=== PATIENT | female | born 1970 | race African-American/Black ===

== ENCOUNTER 2017-09-28 15:04 | Emergency (ER) | payer OTHER ==
[2017-09-28 15:12] VITALS: BP 143/87; PULSE 90; BMI 34.4
[2017-09-28] MEDS ORDERED: KETOROLAC TROMETHAMINE 60 MG/2 ML VIAL IM ONE (15:34)
--- NOTE | 2017-09-28 15:40 | PDOC ---
History of Present Illness - General Chief Complaint: Abscess Boil Stated Complaint: LUMP IN BACK Time Seen by Provider: 09/28/17 15:19 History Source: Patient Exam Limitations: No Limitations - History of Present Illness Initial Comments: 09/28/17 15:35 47 yr female with painful burning sensation to her right mid back for 5 days no rash . Pt also feels "lump" to the lower left side. no fever, history of chicken pox as a child. Past History - Past Medical History Allergies/Adverse Reactions: Allergies Allergy/AdvReac Type Severity Reaction Status Date / Time No Known Drug Allergies Allergy Verified 09/28/17 15:12 Home Medications: Ambulatory Orders Acyclovir [Zovirax -] 800 mg PO 5XD #35 tablet 09/28/17 Cyclobenzaprine HCl [Flexeril 10 mg] 5 mg PO TID PRN #21 tablet 09/28/17 Naproxen [Naprosyn -] 500 mg PO BID PRN #14 tablet 09/28/17 Anemia: No Asthma: No Cancer: No Cardiac Disorders: No CVA: No COPD: No CHF: No Dementia: No Diabetes: No GI Disorders: Yes (GERD) Disorders: No HTN: No Hypercholesterolemia: No Liver Disease: No Seizures: No Thyroid Disease: No - Surgical History Abdominal Surgery: Yes (TUMMY TUCK ') Appendectomy: Yes Cardiac Surgery: No Cholecystectomy: No Lung Surgery: No Neurologic Surgery: Yes (LAMINECTOMY) Orthopedic Surgery: Yes (CTR RIGHT) - Immunization History Immunization Up to Date: Yes - Suicide/Smoking/Psychosocial Hx Smoking History: Never smoked Have you smoked in the past 12 months: No Number of Cigarettes Smoked Daily: 0 Cigars Per Day: 0 Hx Alcohol Use: Yes (SOCIAL) Drug/Substance Use Hx: No Substance Use Type: Alcohol Hx Substance Use Treatment: No Review of Systems - Review of Systems Able to Perform ROS?: Yes Is the patient limited Lithuanian proficient: No Constitutional: No: Symptoms Reported HEENTM: No: Symptoms Reported Respiratory: No: Symptoms reported Cardiac (ROS): No: Symptoms Reported ABD/GI: No: Symptoms Reported : No: Symptoms Reported Musculoskeletal: Yes: See HPI, Back Pain *Physical Exam - Vital Signs Last Vital Signs Temp Pulse Resp BP Pulse Ox 98.4 F 90 20 143/87 99 09/28/17 15:08 09/28/17 15:08 09/28/17 15:08 09/28/17 15:08 09/28/17 15:08 - Physical Exam General Appearance: Yes: Nourished, Appropriately Dressed HEENT: positive: EOMI, BONIFACIO Neck: positive: Supple. negative: Tender, Lymphadenopathy (R), Lymphadenopathy (L), Tender lateral, Tender midline Respiratory/Chest: positive: Lungs Clear, Normal Breath Sounds Cardiovascular: positive: Regular Rate Gastrointestinal/Abdominal: positive: Normal Bowel Sounds, Soft. negative: Tender Rectal Exam: positive: deferred Lymphatic: negative: Adenopathy Musculoskeletal: positive: Normal Inspection, Muscle Spasm (right side , no rashes ). negative: CVA Tenderness, CVA Tenderness (R), CVA Tenderness (L), Decreased Range of Motion, Vertebral Tenderness Extremity: positive: Normal Capillary Refill, Normal Inspection, Normal Range of Motion. negative: Tender Integumentary: positive: Normal Color, Dry, Warm, Other (left lower lumbar soft tissue with movable soft lump approximately [id number] , cyst like non tender ) Neurologic: positive: Fully Oriented, Alert, Normal Mood/Affect, Normal Response , Motor Strength 5/5 Medical Decision Making - Medical Decision Making 09/28/17 15:51 cc: burning sensation to the right lower/mid parapsinal area, no rash present pt states burning for 5 days to that area , does not cross the midline back pt also with a soft non tender mobile cyst to her left lower back no midline tenderness, pt has some muscle spasm to her right lower back pain is worse when standing possible shingles ? 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 pt agrees with the treatment plan and will hold on taking the antiviral (pt does not want antiviral right now ) 09/28/17 19:20 *DC/Admit/Observation/Transfer Diagnosis at time of Disposition: Acute low back pain - Discharge Dispostion Disposition: HOME Condition at time of disposition: Improved - Prescriptions Prescriptions: Acyclovir [Zovirax -] 800 mg PO 5XD #35 tablet Cyclobenzaprine HCl [Flexeril 10 mg] 5 mg PO TID PRN #21 tablet PRN Reason: Muscle Spasms Naproxen [Naprosyn -] 500 mg PO BID PRN #14 tablet PRN Reason: Back Pain - Referrals Referrals: Jose Loza MD [Primary Care Provider] - - Patient Instructions Additional Instructions: please follow with your doctor in 1-2 days for follow up take the naprosyn for pain and take the flexeril for any muscle spasm or tightness in the muscles start the Acyclovir anti viral and re-evaluate in 2 days if no responce if a rash starts finish all the medication - Post Discharge Activity
[2017-09-28] MEDS ORDERED: KETOROLAC TROMETHAMINE 60 MG/2 ML VIAL ONE (15:42)
[2017-09-28 16:16] VITALS: TEMP 98.9
== END 2017-09-28 17:04 | disposition home or self-care (01) ==
LOC: JERFT 15:04
PROC: 3E0233Z Introduction of Anti-inflammatory into Muscle, Percutaneous Approach (ICD-10-PCS; principal; 2017-09-28)
DX: M54.5 Low back pain (principal); M62.830 Muscle spasm of back
CPT/HCPCS: 72100-TC; 96372; 99281-25

== ENCOUNTER 2018-08-19 22:00 | Observation (INO) | payer OTHER ==
[2018-08-19] MEDS ORDERED: SODIUM CHLORIDE 0.9% 500 ML INFUS.BAG IV ONE (23:58)
[2018-08-20] MEDS ORDERED: MAG HYDROX/AL HYDROX/SIMETH 30 ML UNIT-DOSE CUP PO ONE (00:20)
[2018-08-20] MEDS ORDERED: FAMOTIDINE 20 MG/50 ML IVPB 20 MG/50 ML MG IVPB ONE ×2 (00:23→00:53)
[2018-08-20] MEDS ORDERED: MAG HYDROX/AL HYDROX/SIMETH 30 ML UNIT-DOSE CUP ONE (00:53)
[2018-08-20 00:55] LABS: BASO % 0.3 % (0-2.0); EOS % 1.1 % (0-4.5); HEMATOCRIT 35.8 % (32.4-45.2); LYMPH % 33.4 % (8-40); MCH 27.5 pg (25.7-33.7); MCHC 33.4 g/dl (32.0-36.0); MEAN CELL VOLUME 82.4 fl (80-96); MONO % 12.7 % (3.8-10.2); NEUT % 52.5 % (42.8-82.8); PLATELET COUNT 269 K/MM3 (134-434); RBC 4.34 M/mm3 (3.60-5.2); RDW 14.3 % (11.6-15.6); WHITE BLOOD COUNT 5.4 K/mm3 (4.0-10.0)
[2018-08-20 01:26] LABS: ALBUMIN 3.5 g/dl (3.4-5.0); ALK PHOS 54 U/L (45-117); ANION GAP 8 MMOL/L (8-16); BILIRUBIN,TOTAL 0.4 mg/dL (0.2-1); BLOOD UREA NITROGEN 13 mg/dL (7-18); CALCIUM 8.4 mg/dL (8.5-10.1); CHLORIDE 106 mmol/L (98-107); CO2 29 mmol/L (21-32); CREATININE 0.8 mg/dL (0.55-1.3); GLUCOSE,RANDOM 90 mg/dL (74-106); POTASSIUM 3.3 mmol/L (3.5-5.1); SGOT/AST 10 U/L (15-37); SGPT/ALT 15 U/L (13-61); SODIUM 143 mmol/L (136-145)
--- NOTE | 2018-08-20 02:30 | PDOC ---
History of Present Illness - General Chief Complaint: Pain Stated Complaint: CHEST PAIN Time Seen by Provider: 08/19/18 23:40 History Source: Patient - History of Present Illness Initial Comments: 08/20/18 02:30 The patient is a 48 year old female who presents with a 2 day h/o chest pain. Patient states the pain started suddenly yesterday and is "pressure" "stabbing" substernal without radiation and is worsened by breathing. Endorses subjective dyspnea and denies lightheadedness, palpitation, diaphoresis. Notes associated emesis, not tolerating PO intake. No prior cardiac evaluation and unknown family cardiac history as patient is adopted. The patient denies abdominal pain, diarrhea/constipation, dysuria/hematuria, numbness/tingling. NKDA Surgical: Lap band, abdominoplasty, R meniscal repair, shoulder, back Social: denies toxic habits PMD: Dr. Jose Loza Past History - Past Medical History Allergies/Adverse Reactions: Allergies Allergy/AdvReac Type Severity Reaction Status Date / Time No Known Drug Allergies Allergy Verified 08/19/18 22:05 Home Medications: Ambulatory Orders Acyclovir [Zovirax -] 800 mg PO 5XD #35 tablet 09/28/17 Cyclobenzaprine HCl [Flexeril 10 mg] 5 mg PO TID PRN #21 tablet 09/28/17 Naproxen [Naprosyn -] 500 mg PO BID PRN #14 tablet 09/28/17 Anemia: No Asthma: No Cancer: No Cardiac Disorders: No CVA: No COPD: No CHF: No Dementia: No Diabetes: No GI Disorders: Yes (GERD) Disorders: No HTN: No Hypercholesterolemia: No Liver Disease: No Seizures: No Thyroid Disease: No - Surgical History Abdominal Surgery: Yes (TUMMY TUCK ) Appendectomy: Yes Cardiac Surgery: No Cholecystectomy: No Lung Surgery: No Neurologic Surgery: Yes (LAMINECTOMY) Orthopedic Surgery: Yes (CTR RIGHT) - Immunization History Immunization Up to Date: Yes - Suicide/Smoking/Psychosocial Hx Smoking History: Never smoked Have you smoked in the past 12 months: No Number of Cigarettes Smoked Daily: 0 Cigars Per Day: 0 Hx Alcohol Use: Yes (SOCIAL) Drug/Substance Use Hx: No Substance Use Type: Alcohol Hx Substance Use Treatment: No Review of Systems - Review of Systems Constitutional: No: Chills, Fever HEENTM: No: Blurred Vision, Double Vision Respiratory: Yes: Shortness of Breath. No: Cough, Wheezing Cardiac (ROS): Yes: Chest Pain. No: Lightheadedness, Palpitations, Syncope ABD/GI: Yes: Nausea, Vomiting. No: Constipated, Diarrhea : No: Burning, Dysuria *Physical Exam - Vital Signs Last Vital Signs Temp Pulse Resp BP Pulse Ox 98 F 68 18 147/84 100 08/19/18 22:02 08/19/18 22:02 08/19/18 22:02 08/19/18 22:02 08/19/18 22:02 - Physical Exam General Appearance: Yes: Nourished, Appropriately Dressed HEENT: positive: Normal Voice, Hearing Grossly Normal Neck: positive: Trachea midline, Supple Respiratory/Chest: positive: Lungs Clear, Normal Breath Sounds Cardiovascular: positive: S1, S2. negative: JVD Vascular Pulses: Dorsalis-Pedis (R): 2+, Doralis-Pedis (L): 2+ Gastrointestinal/Abdominal: positive: Normal Bowel Sounds, Soft, Other ( epigastric TTP) Extremity: positive: Normal Capillary Refill, Normal Inspection Integumentary: positive: Normal Color, Dry, Warm Neurologic: positive: Fully Oriented, Alert ED Treatment Course - LABORATORY CBC & Chemistry Diagram: 08/20/18 00:43 08/20/18 00:43 - ADDITIONAL ORDERS Additional order review: Laboratory Results 08/20/18 08/20/18 00:57 00:43 Sodium 143 Potassium 3.3 L Chloride 106 Carbon Dioxide 29 Anion Gap 8 BUN 13 Creatinine 0.8 Creat Clearance w eGFR > 60 Random Glucose 90 Calcium 8.4 L Total Bilirubin 0.4 AST 10 L ALT 15 Alkaline Phosphatase 54 Creatine Kinase 107 Troponin I < 0.02 Total Protein 7.0 Albumin 3.5 Urine HCG, Qual Negative 08/20/18 00:43 RBC 4.34 MCV 82.4 MCHC 33.4 RDW 14.3 MPV 7.0 L Neutrophils % 52.5 Lymphocytes % 33.4 Monocytes % 12.7 H Eosinophils % 1.1 Basophils % 0.3 - RADIOLOGY Radiology Studies Ordered: Category Date Time Status CHEST X-RAY PORTABLE* [RAD] Stat Radiology 08/20/18 01:00 Taken - Medications Given in the ED: ED Medications Discontinued Medications Generic Name Dose Route Start Last Admin Trade Name Freq PRN Reason Stop Dose Admin Al Hydroxide/Mg Hydroxide 30 ml 08/20/18 00:20 08/20/18 01:01 Mylanta Oral Suspension - PO 08/20/18 00:21 30 ml ONCE ONE Administration Famotidine/Sodium Chloride 20 mg in 50 mls @ 100 mls/hr 08/20/18 00:23 01:01 Pepcid 20 Mg Premixed Ivpb - IVPB 08/20/18 00:52 100 mls/hr ONCE ONE Administration Sodium Chloride 1,000 ml 08/19/18 23:58 08/20/18 00:49 Normal Saline - IV 08/19/18 23:59 1,000 ml ONCE ONE Administration Medical Decision Making - Medical Decision Making 08/20/18 02:35 48 year old female with chest pain. Reproducible. VS unremarkable. Frontal diagnosis: costochondritis, muskoskeletal, GERD, gastritis, less likely r/o ACS. Troponin (-) x1 EKG shows CXR shows clear costophrenic angles, no consolidation/infiltrate, no cardiomegaly, no PVC 08/20/18 02:43 Patient reassesed @ bedside. Not tolerating PO intake Zofran. Reassess 08/20/18 04:14 Continues to have epigastric TTP Will ED OBS w/planned GB U/S @ 8 a.m. 08/20/18 06:37 Patient reassessed @ bedside States chest pain is resolved, no c/o abdominal pain. Repeat belly exam shows pain in RUQ. 08/20/18 06:[address] Howard (Resident) and Dr. Castillo (Attending). *DC/Admit/Observation/Transfer Diagnosis at time of Disposition: Abdominal pain - Referrals Referrals: Jose Loza MD [Primary Care Provider] - - Patient Instructions - Post Discharge Activity
[2018-08-20] MEDS ORDERED: ONDANSETRON 4 MG/2 ML VIAL IVPUSH ONE (03:00)
[2018-08-20] MEDS ORDERED: ONDANSETRON 4 MG/2 ML VIAL ONE (03:02)
--- NOTE | 2018-08-20 04:30 | PDOC ---
Attending Attestation - Resident Resident Name: Dunia Reynolds - ED Attending Attestation I have performed the following: I have examined & evaluated the patient, The case was reviewed & discussed with the resident, I agree w/resident's findings & plan, Exceptions are as noted - HPI HPI: 08/20/18 04:28 see mdm - Physicial Exam PE: 08/20/18 04:28 see mdm - Medical Decision Making 08/20/18 04:28 48F no pmh s/p lap band surgery here complaining of chest pain, exam consistent epigastric px, no focal chest pain PE as documented by resident +ttp epigastric area consider gastritis, atypical presentation of acs, pancreatitis, oscar f/u labs, analgesia Pt with persistent px, inability to tolerate PO ED obs RUQ US when available
[2018-08-20] MEDS ORDERED: morphine CARPU-JECT 4 MG/1 ML DISP.SYRIN IVPUSH ONE (06:38)
[2018-08-20] MEDS ORDERED: morphine SULFATE 4 MG/ML VIAL ONE (06:50)
[2018-08-20] MEDS ORDERED: METOCLOPRAMIDE HCL INJECTION 10 MG/2 ML VIAL IVPUSH ONE ×2 (08:12→14:45)
[2018-08-20] MEDS ORDERED: METOCLOPRAMIDE HCL INJECTION 10 MG/2 ML VIAL ONE (08:26)
[2018-08-20] MEDS ORDERED: ONDANSETRON 4 MG/2 ML VIAL IVPUSH PRN (09:00)
--- NOTE | 2018-08-20 09:05 | HP ---
CHIEF COMPLAINT: abdominal pain. PCP: Dr. Jose Loza HISTORY OF PRESENT ILLNESS: 48 yo F with PMhx of GERD presents with 3 day history of abdominal pain. She states that 3 days prior she started with some substernal chest pain and felt as if food was getting stuck in her throat. She also experienced non-billous, non-bloody vomiting. The next day she was not able to tolerate any PO intake not even water without vomiting immediately. Pain persisted and worsened. Last night 08/19/18 pain was so severe that she came to ED. She describes 8/10 intermittent non-radiating RUQ sharp/pressure-like pain.Aggravated by PO intake. No alleviating factors. In ED she was given Zofran, reglan , benadryl and Morphine with some relief. Currently denies CP, BUCKNER,SOB, palpitations, fever or chills. Denies any recent illness. ER course was notable for: (1)EKG NSR, normal axis and intervals, no ischemic changes. (2)RUQ US taken; read pending (3)Zofran, reglan , and morphine given. Recent Travel:denies PAST MEDICAL HISTORY: GERD PAST SURGICAL HISTORY: Laminectomy, Lap band, abdominoplasty, R meniscal repair. 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 Family History: non-contributory as she was adopted. Allergies No Known Drug Allergies Allergy (Verified 08/19/18 22:05) HOME MEDICATIONS: Home Medications Medication Instructions Recorded Acyclovir [Zovirax -] 800 mg PO 5XD #35 tablet 09/28/17 Cyclobenzaprine HCl [Flexeril 10 5 mg PO TID PRN #21 tablet 09/28/17 mg] Naproxen [Naprosyn -] 500 mg PO BID PRN #14 tablet 09/28/17 REVIEW OF SYSTEMS CONSTITUTIONAL: Absent: fever, chills, diaphoresis, generalized weakness, malaise, loss of appetite, weight change HEENT: Absent: rhinorrhea, nasal congestion, throat pain, throat swelling, difficulty swallowing, mouth swelling, ear pain, eye pain, visual changes CARDIOVASCULAR: Absent: chest pain, syncope, palpitations, irregular heart rate, lightheadedness , peripheral edema RESPIRATORY: Absent: cough, shortness of breath, dyspnea with exertion, orthopnea, wheezing, stridor, hemoptysis GASTROINTESTINAL: abdominal pain,nausea, vomiting Absent: abdominal distension, , diarrhea, constipation, melena, hematochezia GENITOURINARY: Absent: dysuria, frequency, urgency, hesitancy, hematuria, flank pain, genital pain MUSCULOSKELETAL: Absent: myalgia, arthralgia, joint swelling, back pain, neck pain SKIN: Absent: rash, itching, pallor HEMATOLOGIC/IMMUNOLOGIC: Absent: easy bleeding, easy bruising, lymphadenopathy, frequent infections ENDOCRINE: Absent: unexplained weight gain, unexplained weight loss, heat intolerance, cold intolerance NEUROLOGIC: Absent: headache, focal weakness or paresthesias, dizziness, unsteady gait, seizure, mental status changes, bladder or bowel incontinence PSYCHIATRIC: Absent: anxiety, depression, suicidal or homicidal ideation, hallucinations. PHYSICAL EXAMINATION Vital Signs - 24 hr 08/19/18 08/20/18 08/20/18 22:02 05:49 07:44 Temperature 98 F 97.0 F L Pulse Rate 68 Pulse Rate [ 72 66 Left Radial] Respiratory 18 18 17 Rate Blood Pressure 147/84 Blood Pressure 128/87 105/73 [Left Arm] O2 Sat by Pulse 100 97 Oximetry (%) GENERAL: AAOx3, mild distress HEAD: NCAT EYES: PERRLA,EOMI, sclera anicteric, conjunctiva clear. No lid lag. EARS, NOSE, THROAT: Dry mucous membranes. NECK:Supple without lymphadenopathy, JVD, or masses. LUNGS: CTAB, No wheezes, and no crackles. No accessory muscle use. HEART: RRR, normal S1 and S2 , no M/G/R ABDOMEN: Soft, RUQ ttp ,mild distention, decreased BS, no guarding, no rebound, no masses. No hepatomegaly or splenomegaly. MUSCULOSKELETAL: Normal range of motion at all joints. No bony deformities or tenderness. No CVA tenderness. UPPER EXTREMITIES: 2+ pulses, warm, well-perfused. No cyanosis. No clubbing. No peripheral edema. LOWER EXTREMITIES: 2+ pulses, warm, well-perfused. No calf tenderness. No peripheral edema. NEUROLOGICAL: Cranial nerves II-XII intact. Normal speech. PSYCHIATRIC: Cooperative. Good eye contact. Appropriate mood and affect. SKIN: warm, dry, and intact, no rashes noted. Laboratory Results - last 24 hr 08/20/18 08/20/18 08/20/18 00:43 00:43 00:57 WBC 5.4 RBC 4.34 Hgb 12.0 Hct 35.8 MCV 82.4 MCH 27.5 MCHC 33.4 RDW 14.3 Plt Count 269 MPV 7.0 L Absolute Neuts (auto) 2.8 Neutrophils % 52.5 Lymphocytes % 33.4 Monocytes % 12.7 H Eosinophils % 1.1 Basophils % 0.3 Nucleated RBC % 0 Sodium 143 Potassium 3.3 L Chloride 106 Carbon Dioxide 29 Anion Gap 8 BUN 13 Creatinine 0.8 Creat Clearance w eGFR > 60 Random Glucose 90 Calcium 8.4 L Total Bilirubin 0.4 AST 10 L ALT 15 Alkaline Phosphatase 54 Creatine Kinase 107 Troponin I < 0.02 Total Protein 7.0 Albumin 3.5 Urine HCG, Qual Negative ASSESSMENT/PLAN: 48 yo F with PMhx of GERD presents with 3 day history of abdominal pain placed on ED obs. Problem List - Problem (1) Abdominal pain Assessment/Plan: Possible gastritis v. cholecystitis * RUQ US pending * Zofran, Reglan and Benadryl given in ED. * IVF with NS given * Placed on ED observation. Visit type - Emergency Visit Emergency Visit: Yes ED Registration Date: 08/20/18 Care time: The patient presented to the Emergency Department on the above date and was hospitalized for further evaluation of their emergent condition. - New Patient This patient is new to me today: Yes Date on this admission: 08/22/18 - Critical Care Critical Care patient: No
--- NOTE | 2018-08-20 11:08 | EKG ---
Test Reason : Blood Pressure : / mmHG Vent. Rate : 063 BPM Atrial Rate : 063 BPM P-R Int : 132 ms QRS Dur : 076 ms QT Int : 416 ms P-R-T Axes : 049 034 044 degrees QTc Int : 425 ms NORMAL SINUS RHYTHM POSSIBLE LEFT ATRIAL ENLARGEMENT BORDERLINE ECG WHEN COMPARED WITH ECG OF 25-SEP-2011 09:37, NONSPECIFIC T WAVE ABNORMALITY HAS REPLACED INVERTED T WAVES IN ANTERIOR LEADS Confirmed by BERNARDO DAVIS, KATJA ([id number]) on 08/20/2018 11:07:53 AM Referred By: Confirmed By:KATJA CHANG MD
--- NOTE | 2018-08-20 11:10 | HP ---
Admitting History and Physical - Admission Chief Complaint: came to see pt unahwere she was there admitted obser? 24 hhr. still w epigastric pain no v/nvss History Source: Patient Limitations to Obtaining History: No Limitations - Past Medical History Gastrointestinal: Yes: GERD ...LMP: 07/17/13 - Smoking History Smoking history: Never smoked Have you smoked in the past 12 months: No Aproximately how many cigarettes per day: 0 - Alcohol/Substance Use Hx Alcohol Use: Yes (SOCIAL) Home Medications - Allergies Allergies/Adverse Reactions: Allergies Allergy/AdvReac Type Severity Reaction Status Date / Time No Known Drug Allergies Allergy Verified 08/19/18 22:05 - Home Medications Home Medications: Ambulatory Orders Acyclovir [Zovirax -] 800 mg PO 5XD #35 tablet 09/28/17 Cyclobenzaprine HCl [Flexeril 10 mg] 5 mg PO TID PRN #21 tablet 09/28/17 Naproxen [Naprosyn -] 500 mg PO BID PRN #14 tablet 09/28/17 Family Disease History - Family Disease History Family History: Unremarkable Review of Systems - Review of Systems Gastrointestinal: reports: Abdominal Pain, Nausea Physical Examination Vital Signs: Vital Signs Temperature 97.0 F L 08/20/18 05:49 Pulse Rate 66 08/20/18 07:44 Respiratory Rate 17 08/20/18 07:44 Blood Pressure 105/73 08/20/18 07:44 O2 Sat by Pulse Oximetry (%) 97 08/20/18 05:49 Gastrointestinal: Yes: Tenderness Labs: CBC, BMP 08/20/18 00:43 08/20/18 00:43 Problem List - Problems (1) Gastritis and gastroduodenitis Code(s): K29.70 - GASTRITIS, UNSPECIFIED, WITHOUT BLEEDING; K29.90 - GASTRODUODENITIS, UNSPECIFIED, WITHOUT BLEEDING (2) Food poisoning Code(s): T62.91XA - TOXIC EFFECT OF UNSP NOXIOUS SUB EATEN FOOD, ACC, INIT Assessment/Plan cont to observ? if er dr Morse wants admitt ok w me needs to call me if so
--- NOTE | 2018-08-20 12:53 | PN ---
Teaching Attending Note Name of Resident: Jose Barnes ATTENDING PHYSICIAN STATEMENT I saw and evaluated the patient. I reviewed the resident's note and discussed the case with the resident. I agree with the resident's findings and plan as documented. SUBJECTIVE: OBJECTIVE: Vital Signs Period Temp Pulse Resp BP Sys/[place] Pulse Ox Last 24 Hr 97.0 F-98 F 66-72 17-18 105-147/73-87 97-100 Laboratory Tests 08/20/18 08/20/18 08/20/18 00:43 00:43 00:57 WBC 5.4 RBC 4.34 Hgb 12.0 Hct 35.8 MCV 82.4 MCH 27.5 MCHC 33.4 RDW 14.3 Plt Count 269 MPV 7.0 L Absolute Neuts (auto) 2.8 Neutrophils % 52.5 Lymphocytes % 33.4 Monocytes % 12.7 H Eosinophils % 1.1 Basophils % 0.3 Nucleated RBC % 0 Sodium 143 Potassium 3.3 L Chloride 106 Carbon Dioxide 29 Anion Gap 8 BUN 13 Creatinine 0.8 Creat Clearance w eGFR > 60 Random Glucose 90 Calcium 8.4 L Total Bilirubin 0.4 AST 10 L ALT 15 Alkaline Phosphatase 54 Creatine Kinase 107 Troponin I < 0.02 Total Protein 7.0 Albumin 3.5 Urine HCG, Qual Negative Home Medications Medication Instructions Recorded Acyclovir [Zovirax -] 800 mg PO 5XD #35 tablet 09/28/17 Cyclobenzaprine HCl [Flexeril 10 5 mg PO TID PRN #21 tablet 09/28/17 mg] Naproxen [Naprosyn -] 500 mg PO BID PRN #14 tablet 09/28/17 ASSESSMENT AND PLAN:
[2018-08-20] MEDS ORDERED: PANTOPRAZOLE SODIUM 40 MG VIAL IVPUSH ONE (14:10)
[2018-08-20] MEDS: SODIUM CHLORIDE 1,000 ML IV SCH (14:12)
[2018-08-20] MEDS ORDERED: PANTOPRAZOLE SODIUM 40 MG/100 ML BAG IVPB ONE (14:13)
[2018-08-20 15:30] VITALS: BMI 33.3
[2018-08-20] MEDS ORDERED: morphine SULFATE IMMEDIATE RELEASE 30 MG TAB NR PRN (15:52)
[2018-08-20] MEDS: morphine SULFATE 4 MG/ML VIAL IVPUSH PRN (16:13)
--- NOTE | 2018-08-20 18:20 | CONSULT ---
Consult - text type - Consultation Consultation Note: 48 year old woman well-known to me who presents with sub-sternal pain, difficulty swallowing food and most liquids. Pt with Lap-Band placed at an outside institution approximately 7 years ago. Pt with occasional intermittent difficulty with food requiring band loosening. P/E- Abd- non-distended ; soft non-tender on palpation Abd x-ray- Band at 90 degree angle to spine UGI Barium Swallow- Increased stomach above Band suggesting slippage. Barium does not flow past band RUQ port accessed with 22 gauge needle and 4 cc of fluid removed from Band Barium flowed easily past Band I- Partially slipped Gastric Band Rec- PO soft diet today, advance to solid food slowly over 24-48 hours as tolerated If patient tolerates PO intake tomorrow, may be discharged from Bariatric point of view and will follow with me in 2-3 weeks.
[2018-08-21] MEDS: SODIUM CHLORIDE 1,000 ML IV SCH (02:44)
[2018-08-21 07:15] LABS: BASO % 0.3 % (0-2.0); EOS % 3.3 % (0-4.5); HEMATOCRIT 33.1 % (32.4-45.2); HEMOGLOBIN 10.8 GM/dL (10.7-15.3); LYMPH % 37.9 % (8-40); MCH 26.8 pg (25.7-33.7); MCHC 32.6 g/dl (32.0-36.0); MEAN CELL VOLUME 82.4 fl (80-96); MEAN PLT VOLUME 7.3 fl (7.5-11.1); NEUT % 46.5 % (42.8-82.8); PLATELET COUNT 216 K/MM3 (134-434); RBC 4.02 M/mm3 (3.60-5.2); RDW 14.5 % (11.6-15.6); WHITE BLOOD COUNT 4.5 K/mm3 (4.0-10.0)
[2018-08-21 08:13] LABS: ALK PHOS 43 U/L (45-117); ANION GAP 10 MMOL/L (8-16); BILIRUBIN,TOTAL 0.3 mg/dL (0.2-1); BLOOD UREA NITROGEN 9 mg/dL (7-18); CALCIUM 7.5 mg/dL (8.5-10.1); CHLORIDE 108 mmol/L (98-107); CO2 23 mmol/L (21-32); CREATININE 0.6 mg/dL (0.55-1.3); GLUCOSE,RANDOM 80 mg/dL (74-106); POTASSIUM 3.6 mmol/L (3.5-5.1); SGOT/AST 8 U/L (15-37); SGPT/ALT 13 U/L (13-61); SODIUM 141 mmol/L (136-145); TOT PROT 5.9 g/dl (6.4-8.2)
[2018-08-21] MEDS: morphine SULFATE 4 MG/ML VIAL IVPUSH PRN (08:25)
[2018-08-21] MEDS ORDERED: ONDANSETRON 4 MG/2 ML VIAL IVPB PRN (11:47)
[2018-08-21] MEDS ORDERED: PANTOPRAZOLE SODIUM 40 MG in SODIUM CHLORIDE 100 ML IVPB SCH (12:00)
[2018-08-21] MEDS ORDERED: PANTOPRAZOLE SODIUM 40 MG VIAL IVPUSH SCH (13:00)
[2018-08-21] MEDS ORDERED: METOCLOPRAMIDE HCL INJECTION 10 MG/2 ML VIAL IVPB SCH (14:00)
--- NOTE | 2018-08-21 14:00 | DS ---
Physical Examination Vital Signs: Vital Signs Temperature 98.4 F 08/21/18 09:57 Pulse Rate 65 08/21/18 09:57 Respiratory Rate 20 08/21/18 09:57 Blood Pressure 122/75 08/21/18 09:57 O2 Sat by Pulse Oximetry (%) 99 08/21/18 05:43 Constitutional: Yes: Well Nourished Eyes: Yes: WNL HENT: Yes: WNL Neck: Yes: WNL Cardiovascular: Yes: WNL Respiratory: Yes: WNL Gastrointestinal: Yes: Other (less pain tolerated food soft) Renal/: Yes: WNL Breast(s): Yes: WNL Musculoskeletal: Yes: WNL Extremities: Yes: WNL Edema: No Peripheral Pulses WNL: Yes Integumentary: Yes: WNL Wound/Incision: Yes: Clean/Dry Neurological: Yes: WNL ...Motor Strength: WNL Psychiatric: Yes: WNL Labs: CBC, BMP 08/21/18 06:00 08/21/18 06:00 Discharge Summary Reason For Visit: ABDOMINAL PAIN Current Active Problems Abdominal pain (Acute) Food poisoning (Acute) Gastritis and gastroduodenitis (Acute) Condition: Good - Instructions Diet, Activity, Other Instructions: f/u w dr urena post d/c Referrals: Jose Loza MD [Primary Care Provider] - Disposition: HOME - Home Medications Comprehensive Discharge Medication List: Ambulatory Orders Cetirizine HCl [Zyrtec -] 10 mg PO DAILY 08/20/18 Omeprazole 20 mg PO BID 08/20/18
[2018-08-21 15:32] VITALS: BP 118/77; PULSE 57; TEMP 97.4
== END 2018-08-21 17:29 | disposition home or self-care (01) ==
LOC: JER 22:00 → JERBED 08-20 04:18 → J5S 08-20 14:45
PROVIDERS: ADMIT Family Medicine; ATTEND Family Medicine
PROC: 3E033GC Introduction of Other Therapeutic Substance into Peripheral Vein, Percutaneous Approach (ICD-10-PCS; principal; 2018-08-20)
PROC: 3E033NZ Introduction of Analgesics, Hypnotics, Sedatives into Peripheral Vein, Percutaneous Approach (ICD-10-PCS; 2018-08-20)
PROC: 3E0337Z Introduction of Electrolytic and Water Balance Substance into Peripheral Vein, Percutaneous Approach (ICD-10-PCS; 2018-08-20)
DX: R10.11 Right upper quadrant pain (principal); K29.70 Gastritis, unspecified, without bleeding; K29.90 Gastroduodenitis, unspecified, without bleeding; T62.91XA Toxic effect of unspecified noxious substance eaten as food, accidental (unintentional), initial encounter; Y92.9 Unspecified place or not applicable; K95.09 Other complications of gastric band procedure
CPT/HCPCS: 36415; 71045-TC-FY; 74021-TC-FY; 74245-TC-FY; 76705-TC; 80053; 82550; 84484; 84703; 85025; 93005; 93010; 99283-25; G0378; J7030